=== PATIENT | female | born 1950 | race Caucasian/White ===

== ENCOUNTER → 2017-06-18 | Outpatient (CLI) | payer MEDICARE, OTHER ==
[~2017-06-18] MED LIST: PROAIR HFA0.09 MG/AC IH; VICODIN 7.5/501 EACH PO
[2017-06-18 15:05] LABS: BUN 10 mg/dL (7-18); GFR (ESTIMATED) 100 ML/MIN (59-)
--- NOTE | 2017-06-19 06:30 | RADIOLOGY REPORT PS360 ---
CT CHEST W/ CONTRAST INDICATION: Follow-up pulmonary nodule, lung mass, emphysema PULMONARY NODULE ORDERING PHYSICIAN: AMANDA PRETTY MD PATIENT AGE: 67 years COMPARISON: 10/23/2016 TECHNIQUE: Axial images are obtained with contrast. Sagittal and coronal reformatted images are reviewed as well. FINDINGS: Scattered small lymph nodes are present in the axilla. No mediastinal or hilar mass is evident. Coronary artery calcifications consistent with coronary artery disease. No evidence of aortic aneurysm or central pulmonary embolus. There is normal heart size with no evidence of pericardial effusion. There are diffuse centrilobular erythematous changes. A suspicious pulmonary nodule is once again noted central aspect of the right upper lobe measuring 15 x 9 mm. This is not significantly changed. The nodule does not appear calcified. The margins are slightly irregular. No new nodules are evident. No evidence of adenopathy no effusions or infiltrates. No acute bony anomalies. Upper abdominal images are unremarkable. IMPRESSION: 1. Overall no change in the suspicious 15 x 9 mm nodule in the right upper lobe. Continued follow-up recommended. 2. Emphysema. 3. Coronary artery disease
== END ==
LOC: RAD 14:48
PROVIDERS: Family Medicine
DX: R91.1 Solitary pulmonary nodule (principal); R93.8 Abnormal findings on diagnostic imaging of other specified body structures
CPT/HCPCS: Q9967